=== PATIENT | male | born 1990 | race Caucasian/White ===

== ENCOUNTER 2020-02-01 03:41 | Emergency (ER) | payer MEDICAID ==
[~2020-02-01] VITALS: Ht 172.7 cm; Wt 83.5 kg
[2020-02-01 03:54] VITALS: BP_SYST 122
--- NOTE | 2020-02-01 03:54 | NUR ---
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 Pt AAOx4, bs 115, denies c/o pain or discomfort. Pt states that he has not taken his medication in a long time r/t cost.
--- NOTE | 2020-02-01 03:54 | NUR ---
Pt placed to [place] [id number].
--- NOTE | 2020-02-01 04:00 | NUR ---
Dr. Vasquez assessing pt.
[2020-02-01 04:03] VITALS: BP_SYST 122
--- NOTE | 2020-02-01 04:03 | NUR ---
Patient and v/stol landing signal officer given written and verbal discharge instructions and verbalizes understanding. ER MD discussed with patient the results and treatment provided. Patient in stable condition. ID arm band removed. No Rx given. Patient educated on pain management and to follow up with PMD. Pain Scale 0/10. Opportunity for questions provided and answered. Medication side effect fact sheet provided. Pt leaves in c/o v/stol landing signal officer to group home via squad car.
== END 2020-02-01 04:03 ==
LOC: SED 03:41
DX: Z02.83 Encounter for blood-alcohol and blood-drug test (principal); E11.9 Type 2 diabetes mellitus without complications; F17.200 Nicotine dependence, unspecified, uncomplicated
CPT/HCPCS: 82962; 99283

== ENCOUNTER 2020-02-01 09:58 | Emergency (ER) | payer MEDICAID, SELFPAY ==
[~2020-02-01] VITALS: Ht 170.2 cm; Wt 68.0 kg
[2020-02-01 09:58] VITALS: BP_SYST 139
[2020-02-01 09:59] VITALS: BP_SYST 139
== END 2020-02-01 10:08 ==
LOC: SED 09:58
DX: R05 Cough (principal); R09.81 Nasal congestion; J02.9 Acute pharyngitis, unspecified
CPT/HCPCS: 99283; U0003; C9803-CS

== ENCOUNTER 2022-09-07 17:47 | Emergency (ER) | payer MEDICAID, OTHER ==
[~2022-09-07] VITALS: Ht 167.6 cm; Wt 71.7 kg
[2022-09-07 17:47] VITALS: BP_SYST 109
--- NOTE | 2022-09-07 17:47 | NUR ---
BROUGHT IN BY [facility] AND PLACED IN BED #3, TRIAGED. REPORT GIVEN TO EVELINA
[2022-09-07] MEDS ORDERED: NACL 0.9% 1,000 ML IV ONE (18:00)
[2022-09-07] MEDS ORDERED: ONDANSETRON HCL 4 MG/2 ML VIAL IVP ONE (18:00)
[2022-09-07] MEDS ORDERED: FOLIC ACID 5 MG/ML VIAL IV ONE (18:00)
[2022-09-07] MEDS ORDERED: THIAMINE HCL 100 MG in NS 50 ML IV ONE (18:00)
[2022-09-07] MEDS ORDERED: THIAMINE HCL 100 MG/ML VIAL ONE (18:14)
[2022-09-07 18:56] LABS: CALCIUM 8.1 mg/dL (8.4-11.0); CREATININE 1.05 mg/dL (0.55-1.30)
[2022-09-07 19:00] LABS: BASOPHILS % (AUTO) 0.3 % (0.0-2.0); EOSINOPHILS % (AUTO) 0.2 % (0.0-4.0); HEMATOCRIT 34.2 % (36-54); HEMOGLOBIN 11.4 g/dL (14.0-18.0); LYMPHOCYTES # (AUTO) 2.3 K/uL (1.0-5.5); LYMPHOCYTES % (AUTO) 30.9 % (20.5-51.5); MEAN CORPUSCULAR HEMOGLOBIN 30 pg (27-31); MEAN CORPUSCULAR HGB CONC 33 % (32-36); MEAN CORPUSCULAR VOLUME 90 fL (79.0-98.0); MONOCYTES # (AUTO) 0.5 K/uL (0.0-1.0); MONOCYTES % (AUTO) 6.1 % (1.7-9.3); NEUTROPHILS # (AUTO) 4.7 K/uL (1.8-7.7); NEUTROPHILS % (AUTO) 62.5 % (40.0-70.0); PLATELET COUNT (AUTO) 312 K/uL (130-430); RED BLOOD CELL COUNT(AUTO) 3.79 MIL/uL (4.2-6.2); RED CELL DISTRIBUTION WIDTH 16.2 % (9.0-15.0); WHITE BLOOD COUNT (AUTO) 7.5 K/uL (4.8-10.8)
[2022-09-07 19:01] LABS: ALBUMIN 3.8 g/dL (3.4-4.8); TOTAL BILIRUBIN 0.2 mg/dL (0.0-1.0)
--- NOTE | 2022-09-07 19:03 | NUR ---
PATIENT PRESENTS TO ED BIBAM AFTER BEING FOUND LYING IN THE STREETS (+)ETOH. PATIENT IS ALERT AND ORIENTED X 3. NO S/S OF ACUTE DISTRESS. VSS STABLE. ATTACHED TO MONITOR. PLAN OF CARE ONGOING
--- NOTE | 2022-09-07 19:51 | NUR ---
report given to marquita perez for continuity of care
--- NOTE | 2022-09-07 20:00 | NUR ---
DIESR CONTACT WITH PT. PT AWAKE AND ALERT. NO SIGNS OF DISTRESS. WILL CONTINUE TO MONITOR.
--- NOTE | 2022-09-07 22:00 | NUR ---
PT RESTING QUIETLY WITH NO SIGNS OF DISTRESS.
[2022-09-07] MEDS ORDERED: KETOROLAC TROMETHAMINE 15 MG VIAL IVP ONE (23:15)
--- NOTE | 2022-09-08 00:05 | NUR ---
PT UP TO RESTROOM. AMBULATING WITH [facility].
--- NOTE | 2022-09-08 00:12 | NUR ---
Patient given written and verbal discharge instructions and verbalizes understanding. ER MD VELAdiscussed with patient the results and treatment provided. Patient in stable condition. ID arm band removed. IV catheter removed intact and dressing applied, no active bleeding. Rx of NONE given. Patient educated on pain management and to follow up with PMD. Pain Scale . Opportunity for questions provided and answered. Medication side effect fact sheet provided.
[2022-09-08 00:16] VITALS: BP_SYST 116
== END 2022-09-08 00:16 | disposition home or self-care (01) ==
LOC: SED 17:47
DX: F10.129 Alcohol abuse with intoxication, unspecified (principal); R41.82 Altered mental status, unspecified; F17.200 Nicotine dependence, unspecified, uncomplicated; Z79.899 Other long term (current) drug therapy; Y90.6 Blood alcohol level of 120-199 mg/100 ml
CPT/HCPCS: 99284; 96365; 96375; 80053; 83690; 85025; 36415; G0482; J3490; J2405; J3411

== ENCOUNTER 2022-09-08 17:52 | Emergency (ER) | payer OTHER ==
[~2022-09-08] VITALS: Ht 167.6 cm; Wt 71.7 kg
[2022-09-08 17:52] VITALS: BP_SYST 127
[2022-09-08 18:38] LABS: BASOPHILS % (AUTO) 0.4 % (0.0-2.0); EOSINOPHILS % (AUTO) 0.3 % (0.0-4.0); HEMATOCRIT 34.3 % (36-54); HEMOGLOBIN 11.7 g/dL (14.0-18.0); LYMPHOCYTES # (AUTO) 2.5 K/uL (1.0-5.5); LYMPHOCYTES % (AUTO) 35.5 % (20.5-51.5); MEAN CORPUSCULAR HEMOGLOBIN 31 pg (27-31); MEAN CORPUSCULAR HGB CONC 34 % (32-36); MEAN CORPUSCULAR VOLUME 90 fL (79.0-98.0); MONOCYTES # (AUTO) 0.4 K/uL (0.0-1.0); MONOCYTES % (AUTO) 5.2 % (1.7-9.3); NEUTROPHILS # (AUTO) 4.1 K/uL (1.8-7.7); NEUTROPHILS % (AUTO) 58.6 % (40.0-70.0); PLATELET COUNT (AUTO) 332 K/uL (130-430); RED BLOOD CELL COUNT(AUTO) 3.83 MIL/uL (4.2-6.2); RED CELL DISTRIBUTION WIDTH 15.7 % (9.0-15.0); WHITE BLOOD COUNT (AUTO) 7.1 K/uL (4.8-10.8)
[2022-09-08 18:55] LABS: ALANINE AMINOTRANSFERASE 67 U/L (12-78); ALBUMIN 3.5 g/dL (3.4-4.8); ANION GAP 13 (5-15); ASPARTATE AMINOTRANSFERASE 67 U/L (10-37); CALCIUM 7.8 mg/dL (8.4-11.0); CHLORIDE 102 mmol/L (98-107); CREATININE 0.94 mg/dL (0.55-1.30); GFR AFRICAN AMERICAN 120 mL/min (>90); GLUCOSE 137 mg/dL (70-99); TOTAL BILIRUBIN 0.2 mg/dL (0.0-1.0); UREA NITROGEN, BLOOD 14 mg/dL (8-21)
[2022-09-08 19:06] LABS: ALCOHOL, BLOOD 431 mg/dL (<10)
[2022-09-08] MEDS ORDERED: KETOROLAC TROMETHAMINE 30 MG VIAL IM ONE (19:30)
[2022-09-09 01:17] VITALS: BP_SYST 132
== END 2022-09-09 00:15 | disposition home or self-care (01) ==
LOC: SED 17:52
DX: F10.129 Alcohol abuse with intoxication, unspecified (principal); R51.9 Headache, unspecified; R07.89 Other chest pain; Z79.899 Other long term (current) drug therapy; Y90.6 Blood alcohol level of 120-199 mg/100 ml
CPT/HCPCS: 99285; 70450; 80053; 85025; 84484; 36415; 93005; 76376; 96372; G0482; J1885